=== PATIENT | male | born 1985 | race Two or more races ===

== ENCOUNTER 2020-11-25 15:24 | Emergency (ER) | payer SELFPAY ==
[~2020-11-25] VITALS: Ht 193 cm; Wt 87.0 kg
--- NOTE | 2020-11-25 16:42 | NUR ---
PATIENT VITALS RECHECKED @9050
--- NOTE | 2020-11-25 16:44 | NUR ---
LATE NOTE 1530 PT SLID TO THE GROUND FROM HIS WHEELCHAIR, REPORTS THAT HE PASSES OUT. PT RESPONSIVE, RR EVEN AND UNLABORED. PULSE CHECKED. PT A&OX4. REPORTS NAUSEA FROM FOOD POISONING. IS AGITATED AND YELLING AT STAFF THAT HE IS NOT GETTING A ROOM. EDUCATED ON TRIAGE PROCESS. STATES "I'M GOING TO HAVE TO COMPLAIN TO EVERYONE" PT THEN CALLED DIAMOND SETTER "ASSHOLE". [employer] PAPER MACHINE OPERATOR NOTIFIED.
[2020-11-25] MEDS ORDERED: ONDANSETRON 2MG/ML, 2ML ONE (18:22)
[2020-11-25] MEDS ORDERED: FAMOTIDINE 20 MG/2 ML ONE (18:22)
[2020-11-25 18:27] LABS: BASOPHILS % (AUTO) 0 % (0-1); EOSINOPHILS % (AUTO) 0 % (1-7); LYMPHOCYTES % (AUTO) 6 % (22-44); MEAN CORPUSCULAR HEMOGLOBIN 30.6 pg (27.5-34.5); MEAN PLATELET VOLUME 10.8 fL (7.4-10.4); MONOCYTES % (AUTO) 8 % (2-9); NEUTROPHILS % (AUTO) 86 % (42-75); PLATELET COUNT 147 x10^3/uL (130-400); RED BLOOD COUNT 4.66 x10^6/uL (4.38-5.82); RED CELL DISTRIBUTION WIDTH 13.7 % (9.4-14.8)
[2020-11-25] MEDS ORDERED: FAMOTIDINE 20 MG/2 ML IVPush ONE (18:30)
[2020-11-25] MEDS ORDERED: ONDANSETRON 2MG/ML, 2ML IVPush ONE (18:30)
[2020-11-25] MEDS ORDERED: SODIUM CHLORIDE FLUSH 10ML SYR IVF ONE (18:30)
[2020-11-25] MEDS ORDERED: SODIUM CHLORIDE 0.9% 1,000ML IVBOLUS ONE (18:30)
[2020-11-25 18:38] LABS: ALANINE AMINOTRANSFERASE 56 U/L (12-78); ALBUMIN 4.4 g/dL (3.4-5.0); ANION GAP 7 mmol/L (5-15); CALCIUM 9.3 mg/dL (8.5-10.1); CHLORIDE 107 mmol/L (98-107); CREATININE 1.28 mg/dL (0.7-1.3)
[2020-11-25 18:40] LABS: ALKALINE PHOSPHATASE 56 U/L (45-117); BILIRUBIN,TOTAL 0.9 mg/dL (0.2-1.0); TOTAL PROTEIN 8.7 g/dL (6.4-8.2)
[2020-11-25 19:42] VITALS: BP 127/84
== END 2020-11-25 20:09 | disposition home or self-care (01) ==
LOC: ED 16:00
DX: R11.2 Nausea with vomiting, unspecified (principal); R10.9 Unspecified abdominal pain; M79.10 Myalgia, unspecified site
CPT/HCPCS: 36415; 74021; 80053; 82962; 83690; 85025; 96361; 96374; 96375; 99284; J2405; J7030